=== PATIENT | male | born 1960 | race Caucasian/White ===

== ENCOUNTER 2017-08-30 09:38 | Inpatient (IN) | payer OTHER ==
--- NOTE | 2017-08-30 11:21 | ED Physician Documentation ---
PD HPI FOCAL NEURO - Stated complaint Stated Complaint: RT SIDE NUMBESS/VISION CHANGES - Chief complaint Chief Complaint: Neuro - History obtained from History obtained from: Patient - History of Present Illness Timing - onset: How many days ago (2) Timing - duration: Minutes Timing - details: Abrupt onset, Now resolved Severity of deficit: Mild Weakness: No: Face, Arm, Hand, Leg, Foot, Right, Left, Other Numbness: Hand, Right Associated symptoms: Headache Contributing factors: negative: Anticoagulated, Vascular dz, Atrial fibrillation Baseline status: positive: A&OX3, ambulatory, indep Similar symptoms before: Has not had sx before Recently seen: Not recently seen - Additional information Additional information: 57-year-old male with a history of hypertension has been noncompliant with his medications and 2 nights ago when he got home from work as he was putting some things up on a shelf he developed some numbness to his right fingertips a bit of a headache and some visual changes in the right peripheral vision. His symptoms resolved and have not recurred. He went to his doctor and was asked to come to the ED for evaluation. Review of Systems Constitutional: denies: Fever, Chills, Myalgias, Fatigue Eyes: reports: Decreased vision (resolved) Ears: denies: Ear pain Nose: denies: Rhinorrhea / runny nose, Congestion Throat: denies: Sore throat Cardiac: denies: Chest pain / pressure, Palpitations Respiratory: denies: Dyspnea, Cough GI: denies: Abdominal Pain, Nausea, Vomiting : denies: Dysuria, Frequency Skin: denies: Rash Musculoskeletal: denies: Neck pain, Back pain, Extremity pain Neurologic: reports: Numbness (resovled). denies: Generalized weakness, Focal weakness PD PAST MEDICAL HISTORY - Past Medical History Past Medical History: Yes GI: GERD - Past Surgical History Past Surgical History: Yes - Present Medications Home Medications: Ambulatory Orders Medication Instructions Recorded Confirmed HYDROcod/ACETAM 5/325 [Vicodin 1 - 2 ea PO Q6H PRN #30 tablet 04/19/14 5/325] - Allergies Allergies/Adverse Reactions: Allergies Allergy/AdvReac Type Severity Reaction Status Date / Time No Known Drug Allergies Allergy Verified 08/30/17 11:38 - Social History Does the pt smoke?: No Smoking Status: Never smoker Does the pt drink ETOH?: Yes Does the pt have substance abuse?: No - POLST Patient has POLST: No PD ED PE NORMAL - Vitals Vital signs reviewed: Yes (hypertension ) - General General: Alert and oriented X 3, No acute distress, Well developed/nourished - HEENT HEENT: Atraumatic, PERRL, EOMI - Neck Neck: Supple, no meningeal sign, No bony TTP - Cardiac Cardiac: RRR, Other (2/6 harsh holosystolic murmer at LSB) - Respiratory Respiratory: No respiratory distress, Clear bilaterally - Abdomen Abdomen: Soft, Non tender - Back Back: No CVA TTP, No spinal TTP - Derm Derm: Normal color, Warm and dry, No rash - Extremities Extremities: No deformity, No edema - Neuro Neuro: Alert and oriented X 3, pet nutrition specialist 2-12 intact, No motor deficit, No sensory deficit, Normal speech Eye Opening: Spontaneous Motor: Obeys Commands Verbal: Oriented GCS Score: 15 - Psych Psych: Normal mood, Normal affect NIHSS - Level of Consciousness Level of consciousness: (0) Alert, Keenly responsive LOC Questions: (0) Answers both Q's correct LOC Commands: (0) Performs both correctly - Gaze Best Gaze: (0) Normal - Visual Visual: (0) No loss - Facial Palsy Facial Palsy: (0) Normal, symmetrical movement - Motor Arms (both separate) Motor Arm (right): (0) No drift Motor Arm (left): (0) No drift - Motor Legs (both separate) Motor Leg (right): (0) No drift Motor Leg (left): (0) No drift - Limb Ataxia Limb Ataxia: (0) Absent - Sensory Sensory: (0) Normal - Best Language Best Language: (0) No aphasia - Dysarthria Dysarthria: (0) Normal - Extinction and Inattention (formally neg Extinction and inattention: (0) No abnormality - Total Score/Results Total Score/Result: 0 Results - Vitals Vitals: Vital Signs - 24 hr 08/30/17 08/30/17 08/30/17 09:55 12:10 15:45 Temperature 36.5 C Heart Rate 85 88 78 Respiratory 16 16 16 Rate Blood Pressure 207/114 H 190/117 H 181/117 H O2 Saturation 97 97 97 08/30/17 17:59 Temperature Heart Rate 86 Respiratory 18 Rate Blood Pressure 172/99 H O2 Saturation 95 Oxygen O2 Source Room air - EKG (time done) 1104 Rate: Rate (enter#) (82) Rhythm: NSR, LAE Intervals: LBBB (incomplete) QRS: LVH Compare to prior EKG: Old EKG unavailable Computer interpretation: Agree with computer - Labs Labs: Laboratory Tests 08/30/17 08/30/17 08/30/17 10:25 10:49 11:25 WBC 12.0 H RBC 5.32 Hgb 17.1 Hct 48.5 MCV 91.1 MCH 32.1 H MCHC 35.2 RDW 13.8 Plt Count 191 MPV 7.6 Neut # 9.2 H Lymph # 1.8 [place] # 0.9 Eos # 0.0 Baso # 0.1 Absolute Nucleated RBC 0.00 Nucleated RBC % 0.0 Sodium 134 L Potassium 3.4 L Chloride 97 L Carbon Dioxide 20 L Anion Gap 17.0 H BUN 7 Creatinine 0.7 Estimated GFR (MDRD) 116 Glucose 113 H Calcium 9.4 Total Bilirubin 3.5 H AST 31 ALT 32 Alkaline Phosphatase 71 Troponin I 0.04 Total Protein 7.8 Albumin 4.5 Globulin 3.3 Albumin/Globulin Ratio 1.4 Lipase 24 - Rads (name of study) CT head without Radiology: Prelim report reviewed (Impression: 1. No acute intracranial abnormality noted. 2. Encephalomalacia in the right cerebellum. Acute on chronic ischemia at the periphery of this encephalomalacia cannot be entirely excluded. If clinically indicated, this can be fully assessed with brain MRI with diffusion-weighted imaging.), EMP read indepedently, See rad report MRI brain Radiology: Prelim report reviewed (Impression: 1. Large subacute nonhemorrhagic right cerebellar ischemic infarct with mild mass-effect. Infarct age is indeterminate, probably a few days, less than 2 weeks. 2. Much smaller infarcts probably of similar age are also present in the left posterior cerebellar hemisphere.), EMP read indepedently, See rad report Procedures - IVC sono (time) 1120 Bedside IVC sono: IVC measures (cm) (1.41), IVC collapsed c insp (cm) (complete) , Dehydration (mild) PD MEDICAL DECISION MAKING - ED course Complexity details: reviewed old records, reviewed results, re-evaluated patient , considered differential, d/w patient ED course: 57-year-old physically fit male who has been noncompliant with his lisinopril has marked hypertension today and on his electrocardiogram he has evidence of left ventricular hypertrophy and he has known valvular heart disease. He does have mitral regurgitation. Here in the emergency department today he is symptom -free but has symptoms consistent with a transient ischemic attack 2 days ago. On interrogation of the inferior vena cava today he does have a completely collapsing IVC consistent with mild dehydration. On history from the patient at the time that he was doing this he was doing some overhead work with his arms. I suspect that this may have resulted in subclavian steal and resulting transient ischemic attack. Results of CT are concerning for large cerebellar infarct and MR confirms acute infarct, and the team at [facility] neuroscience is consulted and Dr. Gu graciously agrees to accept this young man in transfer for further work up and treatment. They do not have beds today and our hospitalist here is consulted for admission here. Departure - Departure Disposition: 66 [facility] DC/Xfer Clinical Impression: Cerebrovascular accident (CVA) Qualifiers: CVA mechanism: unspecified Qualified Code(s): I63.9 - Cerebral infarction, unspecified Hypertension Qualifiers: Hypertension type: unspecified Qualified Code(s): I10 - Essential (primary) hypertension
[2017-08-30] MEDS ORDERED: LISINOPRIL 5 MG TABLET PO STA (11:24)
--- NOTE | 2017-08-30 11:45 | CT Report ---
EXAM: CT HEAD EXAM DATE: 08/30/2017 11:39 AM. CLINICAL HISTORY: Right sided numbness resolved. COMPARISON: None. TECHNIQUE: Multiaxial CT images were obtained from the foramen magnum to the vertex. Reformats: Coron al. IV contrast: None. In accordance with CT protocol optimization, one or more of the following dose reduction techniques w ere utilized for this exam: automated exposure control, adjustment of mA and/or KV based on patient s ize, or use of iterative reconstructive technique. FINDINGS: Parenchyma: Encephalomalacia in the posterior aspect of the right cerebellum. Subcortical and periven tricular white matter changes consistent with small vessel ischemic disease in the appropriate clinic al setting. No acute intracranial abnormality noted. No mass effect or midline shift. No intracranial hemorrhage. Extraaxial Spaces: Normal for age. No subdural or epidural collections identified. Ventricles: Normal in size and position. Sinuses and Orbits: Imaged paranasal sinuses, orbits, and mastoids show no significant abnormality. Bones: No evidence of fracture or calvarial defect. Other: None. IMPRESSION: 1. No acute intracranial abnormality noted. 2. Encephalomalacia in the right cerebellum. Acute on chronic ischemia at the periphery of this encep halomalacia cannot be entirely excluded. If clinically indicated, this can be further assessed with b rain MRI with diffusion-weighted imaging. [facility] Referring Provider Line: [phone] SITE ID: [id number]
[2017-08-30 11:48] LABS: ALBUMIN 4.5 g/dL (3.2-5.5); ALBUMIN/GLOBULIN RATIO 1.4 (1.0-2.2); BILIRUBIN,TOTAL 3.5 mg/dL (0.2-1.0); CALCIUM 9.4 mg/dL (8.5-10.3); CREATININE 0.7 mg/dL (0.6-1.2); TOTAL PROTEIN 7.8 g/dL (6.7-8.2)
[2017-08-30 11:52] LABS: BASOPHILS # (AUTO) 0.1 10^3/uL (0.0-0.1); BASOPHILS % (AUTO) 0.6 %; EOSINOPHILS % (AUTO) 0.2 %; HGB - HEMOGLOBIN 17.1 g/dL (14.0-18.0); LYMPHOCYTES # (AUTO) 1.8 10^3/uL (1.5-3.5); LYMPHOCYTES % (AUTO) 14.9 %; MEAN CORPUSCULAR HEMOGLOBIN 32.1 pg (27.0-31.0); MEAN CORPUSCULAR HGB CONC 35.2 g/dL (32.0-36.0); MEAN CORPUSCULAR VOLUME 91.1 fL (80.0-94.0); MEAN PLATELET VOLUME 7.6 fL (7.4-11.4); MONOCYTES # (AUTO) 0.9 10^3/uL (0.0-1.0); MONOCYTES % (AUTO) 7.4 %; NEUTROPHILS # (AUTO) 9.2 10^3/uL (1.5-6.6); NEUTROPHILS % (AUTO) 76.9 %; PLT - PLATELET COUNT 191 10^3/uL (130-450); RED BLOOD COUNT 5.32 10^6/uL (4.70-6.10); RED CELL DISTRIBUTION WIDTH 13.8 % (12.0-15.0)
--- NOTE | 2017-08-30 14:12 | MRI Preliminary Report ---
Exam: MRI BRAIN W/O IMPRESSION: 1. Large subacute nonhemorrhagic right cerebellar ischemic infarct with mild mass effect. Infarct ag e is indeterminant, probably a few days, less than 2 weeks. 2. Much smaller infarcts probably of similar age are also present in the left posterior cerebral linh sphere. [facility] SITE ID: [id number]
--- NOTE | 2017-08-30 14:23 | MRI Report ---
EXAM: MRI BRAIN WITHOUT CONTRAST EXAM DATE: 08/30/2017 01:49 PM. CLINICAL HISTORY: TIA symptoms. Follow-up findings suggestive of cerebellar infarct. Right side numbn ess. COMPARISON: None. TECHNIQUE: Multiplanar, multisequence T1-weighted and fluid-sensitive MR sequences of the brain were performed. Sequences optimized for routine evaluation. Other: None. IV Contrast: None. FINDINGS: Large confluent nonhemorrhagic subacute ischemic infarct of the right inferior and medial cerebellar hemisphere. The region of restricted diffusion with swelling and edema measures up to 5.4 x 3.9 x 2.8 cm. There is mild effacement and mass effect of the inferior lateral posterior fourth ventricle with out evidence for obstruction. Additional smaller supratentorial nodular foci of restricted diffusion including in the region of the left parieto-occipital sulcus measuring about 1.6 cm and additional patchy and nodular diffusion abn ormality in the left posterior periatrial white matter and adjacent cortex. This measures about 1.2 c m. No supratentorial hemorrhage. Minimal chronic-appearing white matter T2 hyperintense signal changes likely from aging and chronic m icroangiopathy. The major arterial skull base flow voids are present. No acute-appearing sinus or mastoid disease. No focal pathologic-appearing marrow signal changes in the skull or clivus. IMPRESSION: 1. Large subacute nonhemorrhagic right cerebellar ischemic infarct with mild mass effect. 2. Much smaller infarcts probably of similar age are also present in the left posterior cerebral linh sphere. [facility] Referring Provider Line: [phone] SITE ID: [id number]
[2017-08-30] MEDS ORDERED: ASPIRIN CHEW 81 MG TABLET PO STA (14:33)
[2017-08-30] MEDS ORDERED: SODIUM CHLORIDE FLUSH 0.9% 10 ML SYRINGE IVP PRN ×2 (20:47→21:11)
[2017-08-30] MEDS ORDERED: TEMAZEPAM 15 MG CAPSULE PO PRN ×2 (20:57→21:11)
[2017-08-30] MEDS ORDERED: oxyCODONE 5 MG TABLET PO PRN ×2 (20:57→21:11)
[2017-08-30] MEDS ORDERED: PROCHLORPERAZINE 10 MG/2 ML VIAL IVP PRN ×2 (20:57→21:11)
[2017-08-30] MEDS ORDERED: ATORVASTATIN 40 MG TABLET PO SCH ×2 (21:00→22:00)
--- NOTE | 2017-08-30 21:20 | HISTORY & PHYSICAL EXAMINATION ---
Chief Complaint - Chief Complaint Chief Complaint: R hemianopsia, numbness in fingers, headache History of Present Illness - Admitted From Admitted From:: Home - History Obtained From History obtained from: Patient and - History of Present Illness HPI Comment/Other: Mr. Brandon Chowdary is a pleasant 57-year-old male with a history of a neurologic event Monday which was self resolving which included right-sided hemianopsia, numbness to his fingers, and a dull aching headache which persisted for several hours. The hemianopsia and numbness in his fingers were only present for approximately 10-15 minutes. Because this event concerned him he came into the emergency department for further evaluation today and was found on MRI to have suffered a subacute cerebellar infarction. History - Past Medical History Cardiovascular: reports: Hypertension GI: reports: Other (achalasia) - Past Surgical History General: reports: Other (lower esophogus repair (achalasia) and repair of subsequent abdominal hernia) - POLST Patient has POLST: No Meds/Allgy - Home Medications Home Medications: Ambulatory Orders Medication Instructions Recorded Confirmed Lisinopril 10 mg PO DAILY 08/30/17 08/30/17 Omeprazole [PriLOSEC] 10 mg PO QDAC 08/30/17 08/30/17 - Allergies Allergies/Adverse Reactions: Allergies Allergy/AdvReac Type Severity Reaction Status Date / Time No Known Drug Allergies Allergy Verified 08/30/17 11:38 Review of Systems - Constitutional Constitutional: denies: Fatigue, Fever, Chills, Malaise - Eyes Eyes: reports: Other (Patient had self resolving right-sided hemianopsia Monday). denies: Pain, Irritation, Blurred vision - Ears, Nose & Throat Ears, Nose & Throat: denies: Ear pain, Hearing loss, Tinnitus, Vertigo, Nasal discharge - Cardiovascular Cariovascular: denies: Irregular heart rate, Palpitations, Chest pain, Edema - Respiratory Respiratory: denies: Cough, Sputum production, Wheezing, Hemoptysis, Orthopnea, SOB at rest - Gastrointestinal Gastrointestinal: denies: Abdominal pain, Constipation, Diarrhea, Rectal bleeding - Genitourinary Genitourinary: denies: Dysuria, Frequency, Urgency, Hematuria - Musculoskeletal Musculoskeletal: denies: Muscle pain, Back pain, Muscle aches, Stiffness - Integumentary Integumentary: denies: Rash, Pruritis, Lesions, Dryness - Neurological Neurological: denies: General weakness, Headache, Dizziness, Numbness - Psychiatric Psychiatric: denies: Depression, Anxiety, Suicidal, Hallucinations - Endocrine Endocrine: denies: Polyuria, Polydypsia, Polyphagia - Hematologic/Lymphatic Hematologic/Lymphatic: denies: Anemia, Bruising, Petechiae, Lymphadenopathy - All Other Systems All Other Systems: reports: Reviewed and negative Exam - Vital Signs Reviewed Vital Signs: Yes Vital Signs: Vital Signs x48h Pulse Resp BP Pulse Ox 08/30/17 19:59 76 20 167/106 H 95 08/30/17 17:59 86 18 172/99 H 95 08/30/17 15:45 78 16 181/117 H 97 - Physical Exam General Appearance: positive: No acute distress, Alert Eyes Bilateral: positive: Normal inspection, PERRL, EOMI, No lid inflammation ENT: positive: ENT inspection nml, Pharynx nml, No signs of dehydration Neck: positive: Nml inspection, Thyroid nml, No JVD, Trachea midline. negative : Thyromegaly Respiratory: positive: Chest non-tender, No respiratory distress, Breath sounds nml. negative: Wheezes, Rales, Rhonchi Cardiovascular: positive: Regular rate & rhythm, No murmur, No gallop Peripheral Pulses: positive: 1+ Abdomen: positive: Non-tender, No organomegaly, Nml bowel sounds, No distention. negative: Tenderness Back: positive: Nml inspection. negative: CVA tenderness (R), CVA tenderness (L ) Skin: positive: Color nml, No rash, Warm, Dry. negative: Cyanosis Extremities: positive: Non-tender, Full ROM, Nml appearance, No pedal edema Neurologic/Psychiatric: positive: Oriented x3, CN's nml (2-12), Motor nml, Sensation nml, Mood/affect nml Conclusion/Plan - Problem List (1) Cerebrovascular accident (CVA) Conclusion/Plan: The patient has sustained a large right cerebellar infarction with a small amount of mass effect noted on MRI. He will be transferred to [facility] when a bed is available and in the meantime will be brought into the hospital in an ICU bed. We will start him on Lovenox and aspirin and will address any other issues that might occur until he can be transferred to [facility]. Qualifiers: CVA mechanism: other Qualified Code(s): I63.8 - Other cerebral infarction (2) Hypertension Conclusion/Plan: Due to the patient's cerebellar infarction, we will set goals of maintaining the systolic blood pressure less than 220 mmHg or diastolic blood pressure at less than 120 mmHg. Qualifiers: Hypertension type: unspecified Qualified Code(s): I10 - Essential (primary ) hypertension (3) Achalasia of esophagus Conclusion/Plan: No need for intervention at this time. - Lab Results Lab results reviewed: Yes Fish Bones: 08/30/17 10:49 08/30/17 11:25 - Diagnostic Imaging Results Diagnostic Imaging Results: positive: Final report reviewed Diagnostic Imaging Results Comments: EXAM: MRI BRAIN WITHOUT CONTRAST EXAM DATE: 08/30/2017 01:49 PM. CLINICAL HISTORY: TIA symptoms. Follow-up findings suggestive of cerebellar infarct. Right side numbness. COMPARISON: None. TECHNIQUE: Multiplanar, multisequence T1-weighted and fluid-sensitive MR sequences of the brain were performed. Sequences optimized for routine evaluation. Other: None. IV Contrast: None. FINDINGS: Large confluent nonhemorrhagic subacute ischemic infarct of the right inferior and medial cerebellar hemisphere. The region of restricted diffusion with swelling and edema measures up to 5.4 x 3.9 x 2.8 cm. There is mild effacement and mass effect of the inferior lateral posterior fourth ventricle without evidence for obstruction. Additional smaller supratentorial nodular foci of restricted diffusion including in the region of the left parieto-occipital sulcus measuring about 1.6 cm and additional patchy and nodular diffusion abnormality in the left posterior periatrial white matter and adjacent cortex. This measures about 1.2 cm. No supratentorial hemorrhage. Minimal chronic-appearing white matter T2 hyperintense signal changes likely from aging and chronic microangiopathy. The major arterial skull base flow voids are present. No acute-appearing sinus or mastoid disease. No focal pathologic-appearing marrow signal changes in the skull or clivus. IMPRESSION: 1. Large subacute nonhemorrhagic right cerebellar ischemic infarct with mild mass effect. 2. Much smaller infarcts probably of similar age are also present in the left posterior cerebral hemisphere. EXAM: CT HEAD EXAM DATE: 08/30/2017 11:39 AM. CLINICAL HISTORY: Right sided numbness resolved. COMPARISON: None. TECHNIQUE: Multiaxial CT images were obtained from the foramen magnum to the vertex. Reformats: Coronal. IV contrast: None. In accordance with CT protocol optimization, one or more of the following dose reduction techniques were utilized for this exam: automated exposure control, adjustment of mA and/or KV based on patient size, or use of iterative reconstructive technique. FINDINGS: Parenchyma: Encephalomalacia in the posterior aspect of the right cerebellum. Subcortical and periventricular white matter changes consistent with small vessel ischemic disease in the appropriate clinical setting. No acute intracranial abnormality noted. No mass effect or midline shift. No intracranial hemorrhage. Extraaxial Spaces: Normal for age. No subdural or epidural collections identified. Ventricles: Normal in size and position. Sinuses and Orbits: Imaged paranasal sinuses, orbits, and mastoids show no significant abnormality. Bones: No evidence of fracture or calvarial defect. Other: None. IMPRESSION: 1. No acute intracranial abnormality noted. 2. Encephalomalacia in the right cerebellum. Acute on chronic ischemia at the periphery of this encephalomalacia cannot be entirely excluded. If clinically indicated, this can be further assessed with brain MRI with diffusion-weighted imaging. - EKG Results EKG Interpreted Independently: Yes EKG Comparison: Old EKG unavailable Core Measures - Anticipated LOS I expect patient to be DC'd or transferred within 96 hours.: Yes - DVT/VTE - Prophylaxis VTE/DVT Device ordered at admit?: No VTE/DVT Prophylaxis med ordered at admit?: Yes - Stroke - Rehab Assessment Rehab services assessment to be ordered?: No Not Ordered - Medical Reason: Not indicated
[2017-08-30 21:28] LABS: ALBUMIN 4.7 g/dL (3.2-5.5); ALBUMIN/GLOBULIN RATIO 1.4 (1.0-2.2); BILIRUBIN,TOTAL 2.9 mg/dL (0.2-1.0); CALCIUM 9.6 mg/dL (8.5-10.3); CREATININE 0.8 mg/dL (0.6-1.2)
[2017-08-30 21:29] LABS: BASOPHILS # (AUTO) 0.1 10^3/uL (0.0-0.1); BASOPHILS % (AUTO) 0.6 %; EOSINOPHILS % (AUTO) 0.2 %; HGB - HEMOGLOBIN 17.4 g/dL (14.0-18.0); LYMPHOCYTES # (AUTO) 1.6 10^3/uL (1.5-3.5); MEAN CORPUSCULAR HEMOGLOBIN 32.4 pg (27.0-31.0); MEAN CORPUSCULAR HGB CONC 34.6 g/dL (32.0-36.0); MEAN CORPUSCULAR VOLUME 93.8 fL (80.0-94.0); MEAN PLATELET VOLUME 7.8 fL (7.4-11.4); MONOCYTES # (AUTO) 0.8 10^3/uL (0.0-1.0); MONOCYTES % (AUTO) 7.4 %; NEUTROPHILS # (AUTO) 8.1 10^3/uL (1.5-6.6); NEUTROPHILS % (AUTO) 76.8 %; PLT - PLATELET COUNT 190 10^3/uL (130-450); RED BLOOD COUNT 5.36 10^6/uL (4.70-6.10); RED CELL DISTRIBUTION WIDTH 13.7 % (12.0-15.0); WHITE BLOOD COUNT 10.6 x10^3/uL (4.8-10.8)
[2017-08-30 21:35] LABS: PT - PROTHROMBIN TIME 11.4 secs (9.9-12.6)
[2017-08-30] MEDS ORDERED: SODIUM CHLORIDE FLUSH 0.9% 10 ML SYRINGE IVP SCH (22:00)
[2017-08-30] MEDS: SODIUM CHLORIDE FLUSH 0.9% 10 ML SYRINGE IVP SCH (22:24)
[2017-08-31] MEDS ORDERED: PANTOPRAZOLE 40 MG TABLET PO SCH ×2 (07:00)
[2017-08-31] MEDS: SODIUM CHLORIDE FLUSH 0.9% 10 ML SYRINGE IVP SCH (08:04)
[2017-08-31] MEDS ORDERED: ASPIRIN EC 81 MG TABLET PO SCH ×3 (09:00)
[2017-08-31] MEDS ORDERED: LISINOPRIL 5 MG TABLET PO SCH ×2 (09:00)
[2017-08-31] MEDS ORDERED: ENOXAPARIN 40 MG/0.4 ML SYRINGE SUBQ SCH ×4 (09:00)
[2017-08-31] MEDS ORDERED: POLYETHYLENE GLYCOL 3350 17 GM PACKET PO SCH ×2 (09:00)
[2017-08-31] MEDS ORDERED: POTASSIUM CHLORIDE 20 MEQ TABLET PO SCH (09:00)
[2017-08-31] MEDS ORDERED: POTASSIUM CHLOR 10 MEQ/100 ML 10 MEQ/100 ML BAG IV SCH (09:00)
[2017-08-31 13:17] VITALS: BP 172/110
--- NOTE | 2017-08-31 13:25 | Discharge Plan ---
Discharge Plan Disposition: 02 Transfer Acute Care Hosp Condition: Fair Diet: Low Sodium No Smoking: If you smoke, Please STOP! Call for help. Follow-up with: Veronica Santizo DO [Primary Care Provider] -
--- NOTE | 2017-09-17 10:02 | DISCHARGE SUMMARY ---
Physician: Carito Linares MD DATE OF ADMISSION: 08/30/2017 DATE OF DISCHARGE/TRANSFER: 08/31/2017 This is a 57-year-old black male with a history of hypertension, history of a heart murmur, and achalasia for which he had surgery and also surgery for a hiatal hernia. The patient admitted to noncompliance with his blood pressure medications. The patient presented to the emergency room 48 hours after symptoms of having right-sided peripheral vision abnormality and numbness to his right fingertips and a headache. He did go to his own doctor and was told to come to the emergency room. All of his symptoms had resolved and he reported that they lasted about 15 minutes. In the emergency room, he was found to have a blood pressure of 207/ [address] showed encephalomalacia in the right cerebellum, and acute on chronic ischemia in the periphery of this encephalomalacia could not be excluded. The patient was admitted to our ICU awaiting transfer to the neurologic service at [facility], where he was accepted. HOSPITAL COURSE AND DISCHARGE DIAGNOSES 1. Subacute cerebrovascular accident due to ischemia/occlusion of the right cerebellar artery. The patient underwent brain MRI for more detailed imaging and this showed: large subacute nonhemorrhagic right cerebellar ischemic infarct with a mild mass effect, and much smaller infarcts probably of similar age present in the left posterior cerebral hemisphere. The patient had no signs or symptoms of mass effect or brain herniation. He was transferred the following morning after admission to [facility] under Neurologic care. The patient was started on aspirin and Lovenox while here and was kept on his lisinopril. Permissive hypertension was allowed, and he was running a blood pressure of 145- 170/90. 2. Hypertension, poorly controlled. The patient did admit he was noncompliant with his blood pressure medications. His scheduled lisinopril 10 mg daily was continued. As above, permissive hypertension was allowed because of the subacute stroke. 3. Abnormal EKG. The patient's resting EKG showed sinus rhythm, PVCs, incomplete left bundle branch block and voltage criteria for left ventricular hypertrophy. 4. Heart murmur. The patient reported having a heart murmur known for several years, but cannot remember ever having an Echo. An Echo was done here, which showed moderate concentric left ventricular hypertrophy, left ventricular ejection fraction 60% to 65%, and myxomatous changes of the mitral valve with moderate mitral valve prolapse and moderate eccentric mitral regurgitation, anteriorly directed, also mild tricuspid regurgitation with a normal calculated PA pressure of 28 mmHg. 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 The LVH and aortic dilation may be a result of long-standing uncontrolled hypertension. LABORATORY AND IMAGING: Reviewed and summarized above. ALLERGIES: NONE. MEDICATIONS AT THE TIME OF TRANSFER 1. Aspirin. 2. Lovenox. 3. Lisinopril. 4. Omeprazole. CONDITION AT THE TIME OF TRANSFER: Guarded PHYSICAL EXAM AT THE TIME OF TRANSFER: BP 149/90 HR 60 Afebrile HEENT: unremarkable Neck: no JVD or bruits Chest: clear Heart: normal S1 and S2, 2-3/6 systolic murmur at lower left sternal border and apex Abdomen: soft, no audible bruit Extremities: good pulses, no edema Neuro: intact CODE STATUS: FULL CODE. FOLLOWUP: To be determined after his hospitalization at [facility]. TIME REQUIRED TO COMPLETE THIS ENTIRE DISCHARGE: 50 minutes. TD: 09/17/2017 09:52 ACE
== END 2017-08-31 13:30 | disposition short-term general hospital (02) | DRG 66 ==
LOC: ED 09:38 → ICU 20:47 → ED 21:07
PROVIDERS: ADMIT Hospitalist; ATTEND Internal Medicine
DX: I63.8 Other cerebral infarction (principal); H53.47 Heteronymous bilateral field defects; R20.9 Unspecified disturbances of skin sensation; R40.2412 Glasgow coma scale score 13-15, at arrival to emergency department; R29.700 NIHSS score 0; I11.9 Hypertensive heart disease without heart failure; G93.89 Other specified disorders of brain; T46.4X6A Underdosing of angiotensin-converting-enzyme inhibitors, initial encounter; Z91.138 Patient's unintentional underdosing of medication regimen for other reason; Z79.899 Other long term (current) drug therapy
CPT/HCPCS: 36415; 70450; 70551; 80053; 83690; 84484; 85025; 85610; 85730; 87150; 93005; 93308; 96365; 96372; 99284; 99285

== ENCOUNTER 2017-08-31 13:39 | Outpatient (CLI) | payer OTHER | END 2017-08-31 13:40 | disposition short-term general hospital (02) | LOC: EMS 13:39 | PROVIDERS: ATTEND Surgery | DX: I63.9 Cerebral infarction, unspecified (principal) | CPT/HCPCS: A0425; A0428 ==

== ENCOUNTER 2017-09-28 08:00 | Outpatient (CLI) | payer OTHER ==
[2017-09-28 19:26] LABS: ALBUMIN 5.2 g/dL (3.2-5.5); ALBUMIN/GLOBULIN RATIO 1.8 (1.0-2.2); CALCIUM 9.6 mg/dL (8.5-10.3); CREATININE 0.9 mg/dL (0.6-1.2); TOTAL PROTEIN 8.1 g/dL (6.7-8.2)
== END 2017-09-28 08:01 | disposition home or self-care (01) ==
LOC: LAB.WCP 08:00
PROVIDERS: ATTEND Family Medicine
DX: I10 Essential (primary) hypertension (principal)
CPT/HCPCS: 36415; 80053; 82088; 82533; 84244

== ENCOUNTER 2017-10-23 08:00 | Outpatient (CLI) | payer OTHER ==
[2017-10-23 20:51] LABS: ALBUMIN 4.8 g/dL (3.2-5.5); ALBUMIN/GLOBULIN RATIO 1.9 (1.0-2.2); BILIRUBIN,TOTAL 1.3 mg/dL (0.2-1.0); CALCIUM 9.1 mg/dL (8.5-10.3); CREATININE 0.7 mg/dL (0.6-1.2); TOTAL PROTEIN 7.3 g/dL (6.7-8.2)
== END 2017-10-23 08:01 ==
LOC: LAB.WCP 08:00
PROVIDERS: ATTEND Family Medicine
DX: R94.5 Abnormal results of liver function studies (principal)
CPT/HCPCS: 36415; 80053

== ENCOUNTER 2017-10-24 08:27 | Emergency (ER) | payer OTHER ==
[2017-10-24 08:47] VITALS: BP 143/82
[2017-10-24 08:59] LABS: BASOPHILS # (AUTO) 0.1 10^3/uL (0.0-0.1); BASOPHILS % (AUTO) 0.9 %; EOSINOPHILS # (AUTO) 0.2 10^3/uL (0.0-0.7); EOSINOPHILS % (AUTO) 1.9 %; HGB - HEMOGLOBIN 15.3 g/dL (14.0-18.0); LYMPHOCYTES % (AUTO) 23.1 %; MEAN CORPUSCULAR HEMOGLOBIN 31.3 pg (27.0-31.0); MEAN CORPUSCULAR HGB CONC 35.6 g/dL (32.0-36.0); MEAN PLATELET VOLUME 6.8 fL (7.4-11.4); MONOCYTES # (AUTO) 0.9 10^3/uL (0.0-1.0); MONOCYTES % (AUTO) 10.8 %; NEUTROPHILS # (AUTO) 5.5 10^3/uL (1.5-6.6); NEUTROPHILS % (AUTO) 63.3 %; PLT - PLATELET COUNT 230 10^3/uL (130-450); RED BLOOD COUNT 4.89 10^6/uL (4.70-6.10); RED CELL DISTRIBUTION WIDTH 12.3 % (12.0-15.0); WHITE BLOOD COUNT 8.7 x10^3/uL (4.8-10.8)
[2017-10-24 09:08] LABS: CALCIUM 9.4 mg/dL (8.5-10.3); CREATININE 0.9 mg/dL (0.6-1.2)
--- NOTE | 2017-10-24 09:15 | ED Physician Documentation ---
History of Present Illness - Stated complaint Stated Complaint: SODIUM LEVEL CHECK PER DR MERCER - Chief complaint Chief Complaint: General - Additonal information Additional information: hx from pt 57 male healthy on two diuretic (chlorthalidone and spironolcatone) among other meds had a routine doc visit and routine labs yesterda and his Na came back low at 118 he feels fine - has no sx PMD sent him to the ER for eval Review of Systems Constitutional: denies: Fever, Chills Throat: denies: Sore throat Cardiac: denies: Chest pain / pressure Respiratory: denies: Dyspnea GI: denies: Abdominal Pain, Nausea, Vomiting Endocrine: denies: Easy bruising / bleeding Immunocompromised: denies: Immunocompromised PD PAST MEDICAL HISTORY - Past Medical History Past Medical History: Yes Cardiovascular: Hypertension Respiratory: None Neuro: None, CVA Endocrine/Autoimmune: None GI: Other HEENT: None Derm: None - Past Surgical History Past Surgical History: Yes General: Other - Present Medications Home Medications: Ambulatory Orders Medication Instructions Recorded Confirmed Lisinopril 10 mg PO DAILY 08/30/17 10/24/17 Omeprazole [PriLOSEC] 10 mg PO QDAC 08/30/17 10/24/17 Atorvastatin [Lipitor] 10/24/17 Metoprolol Succinate 10/24/17 Spironolactone 10/24/17 amLODIPine [Norvasc] 10 mg PO DAILY 10/24/17 10/24/17 - Allergies Allergies/Adverse Reactions: Allergies Allergy/AdvReac Type Severity Reaction Status Date / Time No Known Drug Allergies Allergy Verified 08/30/17 11:38 - Social History Does the pt smoke?: No Smoking Status: Never smoker Does the pt drink ETOH?: Yes Does the pt have substance abuse?: No - POLST Patient has POLST: No PD ED PE NORMAL - Vitals Vital signs reviewed: Yes - Neck Neck: Supple, no meningeal sign - Cardiac Cardiac: RRR - Respiratory Respiratory: No respiratory distress - Abdomen Abdomen: Soft, Non tender - Neuro Neuro: Alert and oriented X 3 Results - Vitals Vitals: Vital Signs - 24 hr 10/24/17 08:37 Temperature 36.2 C L Heart Rate 66 Respiratory 16 Rate Blood Pressure 143/82 H O2 Saturation 100 Oxygen O2 Source Room air - EKG (time done) 0844 Rate: Rate (enter#) (66) Rhythm: NSR [place]: Normal Intervals: Other (partial LBBB/IVCD) - Labs Labs: Laboratory Tests 10/24/17 10/24/17 08:56 08:56 WBC 8.7 RBC 4.89 Hgb 15.3 Hct 43.0 MCV 88.0 MCH 31.3 H MCHC 35.6 RDW 12.3 Plt Count 230 MPV 6.8 L Neut # 5.5 Lymph # 2.0 Luna # 0.9 Eos # 0.2 Baso # 0.1 Absolute Nucleated RBC 0.00 Nucleated RBC % 0.0 Sodium 122 L Potassium 4.1 Chloride 86 L Carbon Dioxide 23 Anion Gap 13.0 BUN 14 Creatinine 0.9 Estimated GFR (MDRD) 87 L Glucose 110 H Calcium 9.4 PD MEDICAL DECISION MAKING - ED course ED course: Na was 131 09/28/17, 118 10/23/17 and now 122 exact time of onset unclear - not sure if truly acute < 48 hr but not chronic either, moderate severity now with level 122, improved from yesterday, asymptomatic alread barbara 4 mEQ/L in 12 hr s intervention and would not wish to correct more rapidly than that anyway so feel pt safe for dc, PMD already stopped the chlorthalidone, recheck level again with PMD in another 24-48 hr, return for sx such as VIDAL sleepiness, diff walking, NV, confusion Departure - Departure Disposition: 01 Home, Self Care Clinical Impression: Hyponatremia Condition: Good Instructions: ED Hyponatremia Comments: Your sodium level is already back up to 122 and you have no symptoms So I do not think you need to be admitted to the hospital for emergent treatment. Stop the chlorthalidone as instructed by Dr eMrcer Please have your level checked again in another 48 hr Return to the ER if you develop symptoms of low sodium such as headache, unsteady balance or gait, nausea vomiting, confusion, sleepiness.
== END 2017-10-24 09:41 | disposition home or self-care (01) ==
LOC: ED 08:27
DX: E87.1 Hypo-osmolality and hyponatremia (principal); I44.7 Left bundle-branch block, unspecified; R94.31 Abnormal electrocardiogram [ECG] [EKG]; I10 Essential (primary) hypertension; Z86.73 Personal history of transient ischemic attack (TIA), and cerebral infarction without residual deficits
CPT/HCPCS: 36415; 80048; 85025; 93005; 99282; 99283

== ENCOUNTER 2017-12-29 11:19 | Outpatient (CLI) | payer OTHER | END 2017-12-29 11:20 | disposition home or self-care (01) | LOC: DI 11:19 | PROVIDERS: ATTEND Family Medicine | DX: I48.91 Unspecified atrial fibrillation (principal); I51.7 Cardiomegaly; I34.0 Nonrheumatic mitral (valve) insufficiency; I34.1 Nonrheumatic mitral (valve) prolapse | CPT/HCPCS: 93306 ==

== ENCOUNTER 2018-05-09 07:48 | Outpatient (CLI) | payer OTHER ==
[2018-05-09 12:52] LABS: BASOPHILS # (AUTO) 0.1 10^3/uL (0.0-0.1); BASOPHILS % (AUTO) 1.1 %; EOSINOPHILS # (AUTO) 0.3 10^3/uL (0.0-0.7); EOSINOPHILS % (AUTO) 3.8 %; HGB - HEMOGLOBIN 13.4 g/dL (14.0-18.0); LYMPHOCYTES % (AUTO) 28.3 %; MEAN CORPUSCULAR HEMOGLOBIN 32.6 pg (27.0-31.0); MEAN CORPUSCULAR HGB CONC 33.4 g/dL (32.0-36.0); MEAN CORPUSCULAR VOLUME 97.8 fL (80.0-94.0); MEAN PLATELET VOLUME 9.4 fL (7.4-11.4); MONOCYTES % (AUTO) 13.5 %; NEUTROPHILS # (AUTO) 3.8 10^3/uL (1.5-6.6); NEUTROPHILS % (AUTO) 53.3 %; PLT - PLATELET COUNT 188 10^3/uL (130-450); RED BLOOD COUNT 4.09 10^6/uL (4.70-6.10); RED CELL DISTRIBUTION WIDTH 15.1 % (12.0-15.0); WHITE BLOOD COUNT 7.2 x10^3/uL (4.8-10.8)
[2018-05-09 13:15] LABS: ALBUMIN 4.3 g/dL (3.2-5.5); ALBUMIN/GLOBULIN RATIO 1.8 (1.0-2.2); ALKALINE PHOSPHATASE 67 IU/L (42-121); ALT ALANINE AMINOTRANSFERASE 74 IU/L (10-60); AST ASPARTATE AMINOTRANSFERASE 45 IU/L (10-42); BILIRUBIN,TOTAL 2.6 mg/dL (0.2-1.0); BUN - BLOOD UREA NITROGEN 8 mg/dL (6-20); CALCIUM 9.2 mg/dL (8.5-10.3); CARBON DIOXIDE - CO2 26 mmol/L (21-32); CHLORIDE 103 mmol/L (101-111); CHOLESTEROL 114 mg/dL; GAMMA GLUTAMYL TRANSPEPTIDASE 149 IU/L (8-55); GFR - MDRD 76 (>89); GLUCOSE 95 mg/dL (70-100); HDL CHOLESTEROL 38 mg/dL; LDL CHOLESTEROL,CALCULATED 61 mg/dL; LDL/HDL RATIO 1.6 (<3.6); SODIUM 138 mmol/L (135-145); TOTAL PROTEIN 6.7 g/dL (6.7-8.2); VLDL CHOLESTEROL 15 mg/dL
[2018-05-10 10:56] LABS: HEPATITIS A AB TOTAL(IMMUNITY) NON-REACTIVE (NON-REACTIVE); HEPATITIS B CORE AB TOTAL NON-REACTIVE (NON-REACTIVE)
[2018-05-10 10:57] LABS: HEPATITIS C ANTIBODY NON-REACTIVE (NON-REACTIVE)
[2018-05-10 10:58] LABS: HEPATITIS B SURFACE ANTIGEN NON-REACTIVE (NON-REACTIVE)
== END 2018-05-09 07:49 | disposition home or self-care (01) ==
LOC: LAB.WCP 07:48
PROVIDERS: ATTEND Family Medicine
DX: R94.5 Abnormal results of liver function studies (principal); I63.9 Cerebral infarction, unspecified; I10 Essential (primary) hypertension
CPT/HCPCS: 36415; 80053; 80061; 82977; 83721; 85025; 86317; 86704; 86708; 86803; 87340

== ENCOUNTER 2018-05-17 15:34 | Outpatient (CLI) | payer OTHER ==
--- NOTE | 2018-05-18 00:01 | Ultrasound Report ---
Reason: LIVER FUNCTION TESTS,ABNORMAL,ALCOHOL USE Procedure Date: 05/17/2018 Accession Number: [id number] / [id number] Procedure: US - Abdomen Complete CPT Code: FULL RESULT: EXAM: ABDOMEN ULTRASOUND EXAM DATE: 05/17/2018 04:21 PM. CLINICAL HISTORY: LIVER FUNCTION TESTS,ABNORMAL,ALCOHOL USE. COMPARISON: None. TECHNIQUE: Real-time scanning was performed with static images obtained. FINDINGS: Liver: Normal in size and echotexture. 16 cm. Main portal vein flow: Hepatopetal. Gallbladder: Normal. No stones, wall thickening, or sonographic Fitzpatrick's sign. Biliary System: Common bile duct measures 4.1 mm. No intrahepatic or extrahepatic ductal dilatation. Pancreas: Distal pancreas not well-seen. Limitations secondary to bowel gas. Remaining pancreas unremarkable. Kidneys: Right: 11.8 cm longitudinally. Normal. No contour-deforming mass, stones, or hydronephrosis. Left: 10.9 cm longitudinally. Normal. No contour-deforming mass, stones, or hydronephrosis. Spleen: 8.9 x 5.2 x 4.4 cm. Normal in size and echotexture. Aorta and Inferior Vena Cava: Unremarkable. Other: None. IMPRESSION: Normal abdomen ultrasound. RADIA
== END 2018-05-17 15:35 | disposition home or self-care (01) ==
LOC: DI 15:34
PROVIDERS: ATTEND Family Medicine
DX: R94.5 Abnormal results of liver function studies (principal); F10.99 Alcohol use, unspecified with unspecified alcohol-induced disorder
CPT/HCPCS: 76700

== ENCOUNTER 2018-05-30 07:39 | Outpatient (CLI) | payer OTHER ==
[2018-05-30 14:38] LABS: ALBUMIN 4.3 g/dL (3.2-5.5); ALBUMIN/GLOBULIN RATIO 1.9 (1.0-2.2); BILIRUBIN,TOTAL 2.4 mg/dL (0.2-1.0); CREATININE 0.8 mg/dL (0.6-1.2); TOTAL PROTEIN 6.6 g/dL (6.7-8.2)
== END 2018-05-30 07:40 | disposition home or self-care (01) ==
LOC: LAB.WCP 07:39
PROVIDERS: ATTEND Family Medicine
DX: R94.5 Abnormal results of liver function studies (principal)
CPT/HCPCS: 36415; 80053; 82977

== ENCOUNTER 2018-07-30 08:08 | Outpatient (CLI) | payer OTHER ==
[2018-07-30 16:01] LABS: INR 1.4 (0.8-1.2); PT - PROTHROMBIN TIME 15.6 secs (9.9-12.6)
== END 2018-07-30 23:59 | disposition home or self-care (01) ==
LOC: LAB.WCP 08:08
DX: Z98.890 Other specified postprocedural states (principal); Z86.79 Personal history of other diseases of the circulatory system
CPT/HCPCS: 36415; 85610

== ENCOUNTER 2018-08-09 11:33 | Outpatient (CLI) | payer OTHER ==
[2018-08-09 19:48] LABS: INR 1.8 (0.8-1.2); PT - PROTHROMBIN TIME 20.6 secs (9.9-12.6)
== END 2018-08-09 23:59 | disposition home or self-care (01) ==
LOC: LAB.WCP 11:33
PROVIDERS: ATTEND Physician Assistant Surgical
DX: Z98.890 Other specified postprocedural states (principal)
CPT/HCPCS: 36415; 85610

== ENCOUNTER 2018-08-16 10:35 | Outpatient (CLI) | payer OTHER | END 2018-08-16 10:36 | disposition home or self-care (01) | LOC: LAB 10:35 | PROVIDERS: ATTEND Thoracic Surgery (Cardiothoracic Vascular Surgery) | DX: Z79.890 Hormone replacement therapy (principal); Z86.79 Personal history of other diseases of the circulatory system | CPT/HCPCS: 85610 ==

== ENCOUNTER 2018-08-24 11:05 | Outpatient (CLI) | payer OTHER | END 2018-08-24 11:06 | disposition home or self-care (01) | LOC: LAB 11:05 | PROVIDERS: ATTEND Thoracic Surgery (Cardiothoracic Vascular Surgery) | DX: Z98.890 Other specified postprocedural states (principal); Z86.79 Personal history of other diseases of the circulatory system | CPT/HCPCS: 85610 ==

== ENCOUNTER 2018-08-31 11:18 | Outpatient (CLI) | payer OTHER | END 2018-08-31 11:19 | disposition home or self-care (01) | LOC: LAB 11:18 | PROVIDERS: ATTEND Thoracic Surgery (Cardiothoracic Vascular Surgery) | DX: Z98.890 Other specified postprocedural states (principal); Z86.79 Personal history of other diseases of the circulatory system | CPT/HCPCS: 85610 ==

== ENCOUNTER 2018-10-19 09:21 | Outpatient (CLI) | payer OTHER | END 2018-10-19 09:22 | disposition home or self-care (01) | LOC: LAB 09:21 | PROVIDERS: ATTEND Thoracic Surgery (Cardiothoracic Vascular Surgery) | DX: Z98.890 Other specified postprocedural states (principal); Z86.79 Personal history of other diseases of the circulatory system | CPT/HCPCS: 85610 ==

== ENCOUNTER 2018-11-30 15:31 | Outpatient (CLI) | payer OTHER | END 2018-11-30 15:32 | disposition home or self-care (01) | LOC: LAB 15:31 | PROVIDERS: ATTEND Thoracic Surgery (Cardiothoracic Vascular Surgery) | DX: Z98.890 Other specified postprocedural states (principal); Z86.79 Personal history of other diseases of the circulatory system | CPT/HCPCS: 85610 ==

== ENCOUNTER 2021-02-24 06:37 | Outpatient (CLI) | payer BC | END 2021-02-24 06:38 | disposition critical access hospital (66) | LOC: EMS 06:37 | DX: R25.1 Tremor, unspecified (principal) | CPT/HCPCS: A0425; A0429 ==

== ENCOUNTER 2021-02-24 06:53 | Emergency (ER) | payer BC, OTHER ==
[2021-02-24] MEDS ORDERED: SODIUM CHLORIDE 0.9% 1,000 ML IV STA (07:12)
--- NOTE | 2021-02-24 07:36 | ED Physician Documentation ---
History of Present Illness - Stated complaint Stated Complaint: UNCONTROLLED SHAKING - Chief complaint Chief Complaint: Neuro - History obtained from History obtained from: Patient, Family, EMS - Additonal information Additional information: Patient is brought to the emergency department by for chief complaint of shaking uncontrollably this morning. The patient states that the symptoms began about a week and a half ago while he was admitted to the hospital at [facility]. The patient had a weeklong admission there for hyponatremia and anemia, during which she was treated for the hyponatremia and also underwent endoscopy and colonoscopy to address his anemia. According to patient and , the veterinary virologist who consulted on his case felt that his hyponatremia was most likely due to his hydrochlorothiazide, so this was discontinued. The patient was told that the shaking, which developed gradually throughout the last several days with his admission, would resolve on its own in time. The patient has been drinking alcohol on a daily basis for at least the last year and intake has often been quite heavy. However, the patient and state he has not had a drink since his admission. The patient denies nausea or sweats. He has not had issues with the shaking before. The patient states that the shaking starts up when he tries to move around, and that he has to stop every few steps if he is walking to try to let his muscles relax. He states that once he does this, he is able to keep walking. He states that his strength is good but sometimes the control of his movements is a little bit tougher because of the amount of shaking. Patient was in the shower this morning when he had an episode of the shaking and had to be lowered to the floor by his . It was at this point in time she called EMS to bring him here for reevaluation. Patient denies any excessive urination or lack thereof. He denies any diarrhea. No other complaints at this time. Review of Systems Ten Systems: 10 systems reviewed and negative Constitutional: reports: Reviewed and negative Eyes: reports: Reviewed and negative Ears: reports: Reviewed and negative Nose: reports: Reviewed and negative Throat: reports: Reviewed and negative Cardiac: reports: Reviewed and negative Respiratory: reports: Reviewed and negative GI: reports: Reviewed and negative. denies: Nausea, Diarrhea : reports: Reviewed and negative. denies: Dysuria Skin: reports: Reviewed and negative Musculoskeletal: reports: Reviewed and negative Neurologic: reports: Other (Tremors) Psychiatric: reports: Reviewed and negative Endocrine: reports: Reviewed and negative Immunocompromised: reports: Reviewed and negative PD PAST MEDICAL HISTORY - Past Medical History Cardiovascular: Hypertension Respiratory: None Endocrine/Autoimmune: None GI: Other HEENT: None Derm: None - Past Surgical History Past Surgical History: Yes General: Other - Present Medications Home Medications: Ambulatory Orders Medication Instructions Recorded Confirmed Omeprazole [PriLOSEC] 10 mg PO QDAC 08/30/17 10/24/17 lisinopriL [Lisinopril] 10 mg PO DAILY 08/30/17 10/24/17 Atorvastatin [Lipitor] 10/24/17 Metoprolol Succinate 10/24/17 Spironolactone 10/24/17 amLODIPine [Norvasc] 10 mg PO DAILY 10/24/17 10/24/17 - Allergies Allergies/Adverse Reactions: Allergies Allergy/AdvReac Type Severity Reaction Status Date / Time No Known Drug Allergies Allergy Verified 02/24/21 12:02 - Social History Does the pt smoke?: No Smoking Status: Never smoker Does the pt drink ETOH?: Yes Does the pt have substance abuse?: No - POLST Patient has POLST: No PD ED PE NORMAL - Vitals Vital signs reviewed: Yes - General General: Alert and oriented X 3, No acute distress, Well developed/nourished - HEENT HEENT: Atraumatic, PERRL, EOMI, Moist mucous membranes - Neck Neck: Supple, no meningeal sign - Cardiac Cardiac: RRR, No murmur, Strong equal pulses - Respiratory Respiratory: No respiratory distress, Clear bilaterally - Abdomen Abdomen: Soft, Non tender, Non distended - Back Back: No CVA TTP - Derm Derm: Normal color, Warm and dry, No rash - Extremities Extremities: No deformity, No edema, No calf tenderness / cord - Neuro Neuro: Alert and oriented X 3, senior ui developer 2-12 intact, No motor deficit, No sensory deficit, Normal speech, Other (Strength is 5+ and equal throughout all 4 extremities, the patient does have coarse tremors with any voluntary movement. The turns cause him to be mildly ataxic, though he is able to target and follow commands.) - Psych Psych: Normal mood, Normal affect Results - Vitals Vitals: Vital Signs - 24 hr 02/24/21 02/24/21 02/24/21 07:03 08:05 10:31 Temperature 37.2 C 36.4 C L Heart Rate 82 75 80 Respiratory 18 22 19 Rate Blood Pressure 92/68 108/79 117/86 H O2 Saturation 98 100 Oxygen O2 Source Room air - Labs Labs: Laboratory Tests 02/24/21 02/24/21 07:48 07:48 WBC 10.4 RBC 2.96 L Hgb 7.2 L Hct 23.6 L MCV 79.7 L MCH 24.3 L MCHC 30.5 L RDW 23.6 H Plt Count 269 MPV 7.8 Neut # (Auto) 8.6 H Lymph # (Auto) 0.9 L Clay # (Auto) 0.7 Eos # (Auto) 0.1 Baso # (Auto) 0.0 Absolute Nucleated RBC 0.00 Nucleated RBC % 0.0 Manual Slide Review Indicated Platelet Estimate NORMAL (130-450,000) Platelet Morphology NORMAL APPEARANCE RBC Morph Micro Appear 1+ TARGET CELLS Sodium 136 Potassium 4.0 Chloride 104 Carbon Dioxide 23 Anion Gap 9.0 BUN 13 Creatinine 1.0 Estimated GFR (MDRD) 76 L Glucose 100 Calcium 8.5 Total Bilirubin 1.1 H AST 28 ALT 31 Alkaline Phosphatase 82 Total Protein 6.2 L Albumin 3.4 Globulin 2.8 Albumin/Globulin Ratio 1.2 Lipase 39 PD MEDICAL DECISION MAKING - ED course Complexity details: reviewed old records, reviewed results, re-evaluated patient, considered differential, d/w patient, d/w family ED course: Patient was given IV normal saline, plus a banana bag, and labs were rechecked. I did order his records from [facility], Which did not arrive [facility]. Labs revealed that the patient's sodium had normalized to 136, and while the patient continued to be anemic at 7.2, he was not in transfusion range at this time. The patient was found to be feeling better after IV fluids. We discussed the possibility of some sort of either temporary assisted living or home health intervention. However, stated that the patient was doing well at home and that she did not think he needed to go stay anywhere else. The patient is in agreement and expressed his desire to go home. At this point in time, I felt that this was reasonable. We have discussed the need for follow-up and the usual indications for return. The patient should continue to take his iron, as directed. Departure - Departure Disposition: 01 Home, Self Care Clinical Impression: Coarse tremors, Alcohol abuse Anemia Qualifiers: Anemia type: unspecified type Qualified Code(s): D64.9 - Anemia, unspecified Condition: Stable Instructions: Essential Tremor ET, ED Anemia Type Not Specified, ED Alcohol Abuse Follow-Up: Sidney Dillon MD [Physician No Access] - Comments: Your sodium level today is actually normal. Your red blood cell levels are still low, though not quite at the point of needing a transfusion. You should continue your iron, as directed, and follow-up with your doctor for monitoring of your anemia. The tremors are most likely caused by a rebound effect after being on daily alcohol for an extended period of time until recently. Generally, as your nerves recover, the tremors will subside and ultimately go away. However, this can take some time for your body to restabilize. Please be sure to get plenty of healthful food and drink plenty of water to stay hydrated. If you continue to have tremors for more than the next couple of weeks, you may follow-up with neurology for reevaluation. Discharge Date/Time: 02/24/21 11:17
[2021-02-24 07:55] LABS: BASOPHILS % (AUTO) 0.4 %; EOSINOPHILS # (AUTO) 0.1 10^3/uL (0.0-0.7); EOSINOPHILS % (AUTO) 0.6 %; HCT - HEMATOCRIT 23.6 % (42.0-52.0); HGB - HEMOGLOBIN 7.2 g/dL (14.0-18.0); LYMPHOCYTES # (AUTO) 0.9 10^3/uL (1.5-3.5); LYMPHOCYTES % (AUTO) 8.4 %; MEAN CORPUSCULAR HEMOGLOBIN 24.3 pg (27.0-31.0); MEAN CORPUSCULAR HGB CONC 30.5 g/dL (32.0-36.0); MEAN CORPUSCULAR VOLUME 79.7 fL (80.0-94.0); MEAN PLATELET VOLUME 7.8 fL (7.4-11.4); MONOCYTES # (AUTO) 0.7 10^3/uL (0.0-1.0); MONOCYTES % (AUTO) 7.1 %; NEUTROPHILS # (AUTO) 8.6 10^3/uL (1.5-6.6); PLT - PLATELET COUNT 269 10^3/uL (130-450); RED BLOOD COUNT 2.96 10^6/uL (4.70-6.10); RED CELL DISTRIBUTION WIDTH 23.6 % (12.0-15.0); WHITE BLOOD COUNT 10.4 x10^3/uL (4.8-10.8)
[2021-02-24 07:57] LABS: SLIDE REVIEW? Indicated
[2021-02-24 08:06] LABS: ALBUMIN 3.4 g/dL (3.2-5.5); ALBUMIN/GLOBULIN RATIO 1.2 (1.0-2.2); BILIRUBIN,TOTAL 1.1 mg/dL (0.2-1.0); CALCIUM 8.5 mg/dL (8.5-10.3); TOTAL PROTEIN 6.2 g/dL (6.7-8.2)
[2021-02-24] MEDS ORDERED: FOLIC ACID INJ 1 MG, THIAMINE INJ 100 MG, MAGNESIUM SULFATE 2 GM, MULTIVITAMIN 10 ML in... IV STA ×5 (08:07)
[2021-02-24 08:37] LABS: PLATELET ESTIMATE, MANUAL NORMAL (130-450,000) (NORMAL); PLATELET MORPHOLOGY NORMAL APPEARANCE (NORMAL)
[2021-02-24 10:32] VITALS: BP 117/86
== END 2021-02-24 11:17 | disposition home or self-care (01) ==
LOC: EDUNIT# → ED 06:53
DX: R25.1 Tremor, unspecified (principal); D64.9 Anemia, unspecified; F10.10 Alcohol abuse, uncomplicated
CPT/HCPCS: 36415; 80053; 83690; 85025; 93005; 96361; 96365; 96366; 99284; J3411

== ENCOUNTER 2021-02-24 11:53 | Emergency (ER) | payer BC ==
[2021-02-24 12:02] VITALS: BP 109/70
--- NOTE | 2021-02-24 12:56 | ED Physician Documentation ---
History of Present Illness - Stated complaint Stated Complaint: SHAKES - Chief complaint Chief Complaint: General - History obtained from History obtained from: Patient, Family - Additonal information Additional information: Patient is brought back to the emergency department immediately after discharge by , who states that actually, she would like to talk to social work about extra assistance at home. Patient seen here for coarse tremors in the setting of alcoholism with recent cessation of alcohol in the last couple of weeks. Please see my note from the patient's visit immediately prior to this 1 for further details. Patient denies any worsening of his symptoms in the last 5 minutes since discharge. No other complaints at this time. Review of Systems Ten Systems: 10 systems reviewed and negative Constitutional: reports: Reviewed and negative Eyes: reports: Reviewed and negative Ears: reports: Reviewed and negative Nose: reports: Reviewed and negative Throat: reports: Reviewed and negative Cardiac: reports: Reviewed and negative Respiratory: reports: Reviewed and negative GI: reports: Reviewed and negative : reports: Reviewed and negative Skin: reports: Reviewed and negative Musculoskeletal: reports: Reviewed and negative Neurologic: reports: Generalized weakness, Other (Tremors) Psychiatric: reports: Reviewed and negative Endocrine: reports: Reviewed and negative Immunocompromised: reports: Reviewed and negative PD PAST MEDICAL HISTORY - Past Medical History Cardiovascular: Hypertension Respiratory: None Endocrine/Autoimmune: None GI: Other HEENT: None Derm: None - Past Surgical History Past Surgical History: Yes General: Other - Present Medications Home Medications: Ambulatory Orders Medication Instructions Recorded Confirmed Omeprazole [PriLOSEC] 10 mg PO QDAC 08/30/17 10/24/17 lisinopriL [Lisinopril] 10 mg PO DAILY 08/30/17 10/24/17 Atorvastatin [Lipitor] 10/24/17 Metoprolol Succinate 10/24/17 Spironolactone 10/24/17 amLODIPine [Norvasc] 10 mg PO DAILY 10/24/17 10/24/17 - Allergies Allergies/Adverse Reactions: Allergies Allergy/AdvReac Type Severity Reaction Status Date / Time No Known Drug Allergies Allergy Verified 02/24/21 12:02 - Social History Does the pt smoke?: No Smoking Status: Never smoker Does the pt drink ETOH?: Yes Does the pt have substance abuse?: No - POLST Patient has POLST: No PD ED PE NORMAL - Vitals Vital signs reviewed: Yes - General General: Alert and oriented X 3, No acute distress - HEENT HEENT: Atraumatic, PERRL, EOMI, Moist mucous membranes - Neck Neck: Supple, no meningeal sign - Cardiac Cardiac: RRR, No murmur - Respiratory Respiratory: No respiratory distress, Clear bilaterally - Abdomen Abdomen: Soft, Non tender, Non distended - Derm Derm: Warm and dry - Extremities Extremities: No deformity - Neuro Neuro: Alert and oriented X 3 - Psych Psych: Normal mood, Normal affect Results - Vitals Vitals: Oxygen O2 Source Room air PD MEDICAL DECISION MAKING - ED course Complexity details: considered differential, d/w patient, d/w family ED course: certified social workers in health care was consulted to go and talk with the patient and his . A number of resource options were given, but ultimately, it was determined that the patient and would still like to go home. It turns out their adult children also live with them, so the patient has plenty of assistance. Departure - Departure Disposition: 01 Home, Self Care Clinical Impression: Coarse tremors Anemia Qualifiers: Anemia type: unspecified type Qualified Code(s): D64.9 - Anemia, unspecified Comments: Please follow-up with your primary doctor as discussed with the social media project manager to get set up for home health. Discharge Date/Time: 02/24/21 13:02
== END 2021-02-24 13:02 | disposition home or self-care (01) ==
LOC: ED 11:53
DX: R25.1 Tremor, unspecified (principal); D64.9 Anemia, unspecified; F10.20 Alcohol dependence, uncomplicated

== ENCOUNTER 2021-03-02 08:00 | Outpatient (CLI) | payer BC ==
[2021-03-02 13:18] LABS: BASOPHILS # (AUTO) 0.1 10^3/uL (0.0-0.1); BASOPHILS % (AUTO) 0.8 %; EOSINOPHILS # (AUTO) 0.1 10^3/uL (0.0-0.7); EOSINOPHILS % (AUTO) 1.5 %; HCT - HEMATOCRIT 26.8 % (42.0-52.0); HGB - HEMOGLOBIN 8.2 g/dL (14.0-18.0); LYMPHOCYTES # (AUTO) 1.4 10^3/uL (1.5-3.5); LYMPHOCYTES % (AUTO) 17.4 %; MEAN CORPUSCULAR HEMOGLOBIN 24.8 pg (27.0-31.0); MEAN CORPUSCULAR HGB CONC 30.6 g/dL (32.0-36.0); MEAN CORPUSCULAR VOLUME 81.2 fL (80.0-94.0); MEAN PLATELET VOLUME 8.9 fL (7.4-11.4); MONOCYTES # (AUTO) 0.8 10^3/uL (0.0-1.0); MONOCYTES % (AUTO) 10.3 %; NEUTROPHILS # (AUTO) 5.6 10^3/uL (1.5-6.6); NEUTROPHILS % (AUTO) 69.7 %; PLT - PLATELET COUNT 445 10^3/uL (130-450); RED CELL DISTRIBUTION WIDTH 22.9 % (12.0-15.0)
[2021-03-02 13:48] LABS: ALBUMIN 3.7 g/dL (3.2-5.5); ALBUMIN/GLOBULIN RATIO 1.4 (1.0-2.2); BILIRUBIN,TOTAL 0.9 mg/dL (0.2-1.0); CALCIUM 9.1 mg/dL (8.5-10.3); CREATININE 0.9 mg/dL (0.6-1.2); POTASSIUM 3.4 mmol/L (3.5-5.0); TOTAL PROTEIN 6.3 g/dL (6.7-8.2)
== END 2021-03-02 23:59 | disposition home or self-care (01) ==
LOC: LAB.WCP 08:00
PROVIDERS: ATTEND Family Medicine
DX: E87.1 Hypo-osmolality and hyponatremia (principal); Z72.89 Other problems related to lifestyle
CPT/HCPCS: 36415; 80053; 83540; 84466; 85025

== ENCOUNTER 2021-04-20 14:25 | Outpatient (CLI) | payer BC ==
[2021-04-20 18:32] LABS: BASOPHILS # (AUTO) 0.1 10^3/uL (0.0-0.1); BASOPHILS % (AUTO) 0.7 %; EOSINOPHILS # (AUTO) 0.2 10^3/uL (0.0-0.7); EOSINOPHILS % (AUTO) 2.3 %; HCT - HEMATOCRIT 35.5 % (42.0-52.0); HGB - HEMOGLOBIN 10.5 g/dL (14.0-18.0); LYMPHOCYTES # (AUTO) 2.3 10^3/uL (1.5-3.5); LYMPHOCYTES % (AUTO) 27.1 %; MEAN CORPUSCULAR HEMOGLOBIN 24.5 pg (27.0-31.0); MEAN CORPUSCULAR HGB CONC 29.6 g/dL (32.0-36.0); MEAN CORPUSCULAR VOLUME 82.9 fL (80.0-94.0); MEAN PLATELET VOLUME 9.1 fL (7.4-11.4); MONOCYTES # (AUTO) 0.8 10^3/uL (0.0-1.0); MONOCYTES % (AUTO) 9.7 %; NEUTROPHILS # (AUTO) 5.2 10^3/uL (1.5-6.6); PLT - PLATELET COUNT 316 10^3/uL (130-450); RED BLOOD COUNT 4.28 10^6/uL (4.70-6.10); RED CELL DISTRIBUTION WIDTH 17.4 % (12.0-15.0); WHITE BLOOD COUNT 8.6 x10^3/uL (4.8-10.8)
[2021-04-20 18:53] LABS: ALBUMIN 4.2 g/dL (3.2-5.5); ALBUMIN/GLOBULIN RATIO 1.4 (1.0-2.2); BILIRUBIN,TOTAL 1.3 mg/dL (0.2-1.0); CALCIUM 9.3 mg/dL (8.5-10.3); CREATININE 0.8 mg/dL (0.6-1.2); POTASSIUM 4.7 mmol/L (3.5-5.0); TOTAL PROTEIN 7.3 g/dL (6.7-8.2)
== END 2021-04-20 14:26 | disposition home or self-care (01) ==
LOC: LAB.N 14:25
PROVIDERS: ATTEND Family Medicine
DX: D50.9 Iron deficiency anemia, unspecified (principal); K22.0 Achalasia of cardia
CPT/HCPCS: 36415; 80053; 82728; 83540; 84466; 85025

== ENCOUNTER 2022-08-10 09:58 | Emergency (ER) | payer BC, OTHER ==
[2022-08-10 10:43] LABS: BASOPHILS # (AUTO) 0.1 10^3/uL (0.0-0.1); BASOPHILS % (AUTO) 0.4 %; EOSINOPHILS # (AUTO) 0.1 10^3/uL (0.0-0.7); EOSINOPHILS % (AUTO) 0.9 %; LYMPHOCYTES # (AUTO) 1.9 10^3/uL (1.5-3.5); MEAN CORPUSCULAR HEMOGLOBIN 15.8 pg (27.0-31.0); MEAN CORPUSCULAR VOLUME 60.8 fL (80.0-94.0); MEAN PLATELET VOLUME 8.4 fL (7.4-11.4); MONOCYTES # (AUTO) 0.9 10^3/uL (0.0-1.0); MONOCYTES % (AUTO) 6.2 %; NEUTROPHILS # (AUTO) 10.8 10^3/uL (1.5-6.6); NEUTROPHILS % (AUTO) 78.1 %; NRBC ABSOLUTE COUNT (AUTO) 0.04 x10^3/uL; NUCLEATED RED BLOOD CELLS AUTO 0.3 /100WBC; PLT - PLATELET COUNT 314 10^3/uL (130-450); RED BLOOD COUNT 2.78 10^6/uL (4.70-6.10); RED CELL DISTRIBUTION WIDTH 21.7 % (12.0-15.0); WHITE BLOOD COUNT 13.8 x10^3/uL (4.8-10.8)
[2022-08-10 10:46] LABS: HGB - HEMOGLOBIN 4.4 g/dL (14.0-18.0)
[2022-08-10 10:47] LABS: HCT - HEMATOCRIT 16.9 % (42.0-52.0); SLIDE REVIEW? Indicated
[2022-08-10 10:57] LABS: ALBUMIN/GLOBULIN RATIO 1.4 (1.0-2.2); BILIRUBIN,TOTAL 1.8 mg/dL (0.2-1.0); CALCIUM 8.8 mg/dL (8.5-10.3); CREATININE 1.1 mg/dL (0.6-1.2); PLATELET ESTIMATE, MANUAL NORMAL (130-450,000) (NORMAL); PLATELET MORPHOLOGY NORMAL APPEARANCE (NORMAL); POTASSIUM 3.9 mmol/L (3.5-5.0); TOTAL PROTEIN 6.9 g/dL (6.7-8.2)
[2022-08-10 10:58] LABS: SLIDE SENT FOR PATH REVIEW? Indicated
--- NOTE | 2022-08-10 11:18 | XRAY Report ---
PROCEDURE: Chest 1 View X-Ray INDICATIONS: Chest pain TECHNIQUE: One view of the chest was acquired. COMPARISON: CT chest 04/19/2014. FINDINGS: Surgical changes and devices: Left atrial appendage occluder device. Aortic valve replacement. Post median sternotomy. Lungs and pleura: No pleural effusions or pneumothorax. Lungs are clear. Mediastinum: Mediastinal contours appear normal. Heart size is within normal limits. Bones and chest wall: No suspicious bony lesions. Overlying soft tissues appear unremarkable. IMPRESSION: No acute cardiopulmonary abnormality. Reviewed by: Moses Taylor MD on 08/10/2022 11:17 AM [facility] Approved by: Moses Taylor MD on 08/10/2022 11:17 AM [facility] Station ID: [id number]
--- NOTE | 2022-08-10 12:02 | ED Physician Documentation ---
PD HPI CHEST PAIN - Stated complaint Stated Complaint: FATIGUE/HIGH HR - Chief complaint Chief Complaint: Cardiac - History obtained from History obtained from: Patient - Additional information Additional information: 62-year-old gentleman with history of mitral valve repair about 5 years ago presents with progressive weakness with mild shortness of breath going on for the last few weeks. Over the last few days he can hear his heart beating in his ears. He denies dark or tarry stools. He does have a history of GI bleeding necessitating transfusion during an admission mostly for hyponatremia and about a year and a half ago. At that time per the he had upper and lower endoscopies that were reportedly negative. He denies alcohol use. Does use aspirin for aches and pains about twice to 3 times a week. Review of Systems Constitutional: reports: Fatigue. denies: Fever, Chills Cardiac: denies: Chest pain / pressure PD PAST MEDICAL HISTORY - Past Medical History Past Medical History: Yes Cardiovascular: Hypertension Respiratory: None Endocrine/Autoimmune: None GI: Other HEENT: None Derm: None - Past Surgical History Past Surgical History: Yes General: Other - Present Medications Home Medications: Ambulatory Orders Medication Instructions Recorded Confirmed Omeprazole [PriLOSEC] 10 mg PO QDAC 08/30/17 10/24/17 lisinopriL [Lisinopril] 10 mg PO DAILY 08/30/17 10/24/17 Atorvastatin [Lipitor] 10/24/17 Metoprolol Succinate 10/24/17 Spironolactone 10/24/17 amLODIPine [Norvasc] 10 mg PO DAILY 10/24/17 10/24/17 - Allergies Allergies/Adverse Reactions: Allergies Allergy/AdvReac Type Severity Reaction Status Date / Time No Known Drug Allergies Allergy Verified 08/10/22 10:12 - Social History Does the pt smoke?: No Smoking Status: Never smoker Does the pt drink ETOH?: Yes Does the pt have substance abuse?: No - POLST Patient has POLST: No PD ED PE NORMAL - Vitals Vital signs reviewed: Yes - General General: Alert and oriented X 3, No acute distress - HEENT HEENT: PERRL, EOMI - Neck Neck: Supple, no meningeal sign, No bony TTP - Cardiac Cardiac: Other (No murmur, occasional extrasystoles) - Respiratory Respiratory: No respiratory distress, Clear bilaterally - Abdomen Abdomen: Non tender - Back Back: No CVA TTP, No spinal TTP - Derm Derm: Normal color, Warm and dry - Extremities Extremities: No edema, No calf tenderness / cord - Neuro Neuro: Alert and oriented X 3, Normal speech Results - Vitals Vitals: Vital Signs - 24 hr 08/10/22 08/10/22 08/10/22 10:02 11:50 12:44 Temperature 36 C L 37.1 C Heart Rate 91 75 Heart Rate [ 68 Apical] Respiratory 14 16 18 Rate Blood Pressure 148/53 H 134/71 H Blood Pressure 107/61 [Right Brachial artery] O2 Saturation 100 100 100 08/10/22 08/10/22 08/10/22 13:01 15:17 15:29 Temperature 37.2 C 36.9 C 37.3 C Heart Rate Heart Rate [ 85 66 63 Apical] Respiratory 20 19 16 Rate Blood Pressure Blood Pressure 104/47 L 110/68 112/66 [Right Brachial artery] O2 Saturation 98 100 100 08/10/22 08/10/22 08/10/22 15:53 16:09 17:00 Temperature 37.3 C 36.9 C Heart Rate 64 Heart Rate [ 63 65 64 Apical] Respiratory 16 20 18 Rate Blood Pressure 105/65 Blood Pressure 112/66 109/72 105/65 [Right Brachial artery] O2 Saturation 100 100 98 08/10/22 08/10/22 08/10/22 17:36 17:51 18:07 Temperature 36.8 C 37.2 C 36.5 C Heart Rate Heart Rate [ 67 67 74 Apical] Respiratory 18 18 17 Rate Blood Pressure Blood Pressure 104/66 104/66 104/62 [Right Brachial artery] O2 Saturation 100 100 98 08/10/22 08/10/22 08/10/22 18:30 19:00 19:42 Temperature 36.8 C 37.4 C Heart Rate 66 Heart Rate [ 68 66 Apical] Respiratory 16 19 19 Rate Blood Pressure 104/68 Blood Pressure 98/63 128/75 [Right Brachial artery] O2 Saturation 99 100 100 08/10/22 19:43 Temperature 37.4 C Heart Rate Heart Rate [ 66 Apical] Respiratory 19 Rate Blood Pressure Blood Pressure 128/75 [Right Brachial artery] O2 Saturation 100 Oxygen O2 Source Room air - EKG (time done) 1010 Rate: Rate (enter#) (78) Rhythm: NSR [place]: LAD Intervals: Normal AK QRS: Low voltage Ischemia: Normal ST segments - Labs Labs: Microbiology 08/10/22 12:55 Occult Blood - Final Stool Laboratory Tests 08/10/22 08/10/22 08/10/22 10:32 10:32 10:32 WBC 13.8 H RBC 2.78 L Hgb 4.4 L* Hct 16.9 L* MCV 60.8 L MCH 15.8 L MCHC 26.0 L RDW 21.7 H Plt Count 314 MPV 8.4 Neut # (Auto) 10.8 H Lymph # (Auto) 1.9 [place] # (Auto) 0.9 Eos # (Auto) 0.1 Baso # (Auto) 0.1 Absolute Nucleated RBC 0.04 Nucleated RBC % 0.3 Manual Slide Review Indicated Platelet Estimate NORMAL (130-450,000) Platelet Morphology NORMAL APPEARANCE RBC Morph Micro Appear 4+ HYPOCHROMASIA Sodium 132 L Potassium 3.9 Chloride 101 Carbon Dioxide 22 Anion Gap 9.0 BUN 21 H Creatinine 1.1 Estimated GFR (MDRD) 68 L Glucose 148 H Calcium 8.8 Iron TIBC % Saturation Transferrin Total Bilirubin 1.8 H AST 17 ALT 14 Alkaline Phosphatase 56 Total Protein 6.9 Albumin 4.0 Globulin 2.9 Albumin/Globulin Ratio 1.4 Lipase 49 Slides for Path Review Indicated Blood Type Blood Type Recheck O POSITIVE Antibody Screen Crossmatch IS Only 08/10/22 08/10/22 10:32 11:15 WBC RBC Hgb Hct MCV MCH MCHC RDW Plt Count MPV Neut # (Auto) Lymph # (Auto) [place] # (Auto) Eos # (Auto) Baso # (Auto) Absolute Nucleated RBC Nucleated RBC % Manual Slide Review Platelet Estimate Platelet Morphology RBC Morph Micro Appear Sodium Potassium Chloride Carbon Dioxide Anion Gap BUN Creatinine Estimated GFR (MDRD) Glucose Calcium Iron 14 L TIBC 589 H % Saturation 2 L Transferrin 421 H Total Bilirubin AST ALT Alkaline Phosphatase Total Protein Albumin Globulin Albumin/Globulin Ratio Lipase Slides for Path Review Blood Type O POSITIVE Blood Type Recheck Antibody Screen NEGATIVE Crossmatch IS Only See Detail - Rads (name of study) 1v chest Radiology: Final report received, EMP read indepedently (negatve save postop chgs) PD Medical Decision Making - ED course ED course: 62-year-old gentleman with history of mitral valve repair presents with weakness and is found to have severe anemia. He is iron deficient and guaiac negative here. He was administered 3 units of blood given the profoundly low H&H and he was feeling much better. Discussed with him that he would need to follow-up with hematology for definitive diagnosis and further work-up. He and his voiced understanding. Departure - Departure Disposition: Home, Self Care Clinical Impression: Anemia Qualifiers: Anemia type: unspecified type Qualified Code(s): D64.9 - Anemia, unspecified Condition: Good Record reviewed to determine appropriate education?: Yes Instructions: ED Anemia Type Not Specified Comments: You are seen today for weakness related to profound anemia. Your hemoglobin was 4.4. There was no blood in your stool. As such the cause of your anemia is not known. You should probably restart an iron supplement but you also need to follow-up with your doctor for an semiurgent referral to hematology. Discharge Date/Time: 08/10/22 19:54
[2022-08-10 14:28] LABS: % IRON SATURATION 2 % (20-50); IRON 14 ug/dL (45-182); TOTAL IRON BINDING CAPACITY 589 ug/dL (250-450); TRANSFERRIN 421 mg/dL (180-329)
[2022-08-10 19:43] VITALS: BP 128/75
[2022-08-13 12:08] LABS: PATHOLOGIST SLIDE COMMENTS SEE SEPARATE REPORT
== END 2022-08-10 19:54 | disposition home or self-care (01) ==
LOC: ED 09:58
DX: D50.9 Iron deficiency anemia, unspecified (principal)
CPT/HCPCS: 36415; 36430; 71045; 80053; 82272; 83540; 83690; 84466; 85025; 86850; 86900; 86901; 86920; 93005; 99283; 99285; P9016

== ENCOUNTER 2022-08-12 11:16 | Outpatient (CLI) | payer OTHER ==
[2022-08-12 11:25] LABS: BASOPHILS # (AUTO) 0.1 10^3/uL (0.0-0.1); BASOPHILS % (AUTO) 0.9 %; EOSINOPHILS # (AUTO) 0.3 10^3/uL (0.0-0.7); EOSINOPHILS % (AUTO) 2.6 %; HCT - HEMATOCRIT 24.1 % (42.0-52.0); LYMPHOCYTES # (AUTO) 2.8 10^3/uL (1.5-3.5); LYMPHOCYTES % (AUTO) 24.1 %; MEAN CORPUSCULAR HEMOGLOBIN 20.1 pg (27.0-31.0); MEAN CORPUSCULAR VOLUME 69.1 fL (80.0-94.0); MEAN PLATELET VOLUME 8.2 fL (7.4-11.4); MONOCYTES # (AUTO) 1.3 10^3/uL (0.0-1.0); NEUTROPHILS # (AUTO) 7.2 10^3/uL (1.5-6.6); NRBC ABSOLUTE COUNT (AUTO) 0.05 x10^3/uL; NUCLEATED RED BLOOD CELLS AUTO 0.4 /100WBC; PLT - PLATELET COUNT 301 10^3/uL (130-450); RED BLOOD COUNT 3.49 10^6/uL (4.70-6.10); RED CELL DISTRIBUTION WIDTH 29.8 % (12.0-15.0); WHITE BLOOD COUNT 11.8 x10^3/uL (4.8-10.8)
[2022-08-12 11:52] LABS: SLIDE REVIEW? Indicated
[2022-08-12 11:54] LABS: PLATELET ESTIMATE, MANUAL NORMAL (130-450,000) (NORMAL); PLATELET MORPHOLOGY NORMAL APPEARANCE (NORMAL)
[2022-08-12 11:55] LABS: WBC MORPHOLOGY (MULTIPLE) NORMAL APPEARANCE (NORMAL)
== END 2022-08-12 11:17 | disposition home or self-care (01) ==
LOC: LAB 11:16
PROVIDERS: ATTEND Physician Assistant
DX: D50.9 Iron deficiency anemia, unspecified (principal)
CPT/HCPCS: 36415; 85025

== ENCOUNTER 2022-08-16 10:36 | Outpatient (CLI) | payer OTHER ==
[2022-08-16 10:46] LABS: BASOPHILS # (AUTO) 0.1 10^3/uL (0.0-0.1); BASOPHILS % (AUTO) 0.7 %; EOSINOPHILS # (AUTO) 0.3 10^3/uL (0.0-0.7); EOSINOPHILS % (AUTO) 2.1 %; HGB - HEMOGLOBIN 7.3 g/dL (14.0-18.0); LYMPHOCYTES # (AUTO) 2.7 10^3/uL (1.5-3.5); MEAN CORPUSCULAR HEMOGLOBIN 20.3 pg (27.0-31.0); MEAN CORPUSCULAR HGB CONC 28.1 g/dL (32.0-36.0); MEAN CORPUSCULAR VOLUME 72.2 fL (80.0-94.0); MEAN PLATELET VOLUME 8.2 fL (7.4-11.4); MONOCYTES # (AUTO) 1.3 10^3/uL (0.0-1.0); MONOCYTES % (AUTO) 10.7 %; NEUTROPHILS # (AUTO) 7.8 10^3/uL (1.5-6.6); NEUTROPHILS % (AUTO) 64.1 %; PLT - PLATELET COUNT 295 10^3/uL (130-450); WHITE BLOOD COUNT 12.1 x10^3/uL (4.8-10.8)
[2022-08-16 11:07] LABS: SLIDE REVIEW? Indicated
== END 2022-08-16 10:37 | disposition home or self-care (01) ==
LOC: LAB 10:36
PROVIDERS: ATTEND Physician Assistant
DX: D50.9 Iron deficiency anemia, unspecified (principal)
CPT/HCPCS: 36415; 85025

== ENCOUNTER 2024-04-17 09:41 | Emergency (ER) | payer MEDICARE, OTHER ==
[2024-04-17 10:22] LABS: BASOPHILS # (AUTO) 0.1 10^3/uL (0.0-0.1); EOSINOPHILS % (AUTO) 0.5 %; LYMPHOCYTES # (AUTO) 0.7 10^3/uL (1.5-3.5); LYMPHOCYTES % (AUTO) 11.5 %; MEAN CORPUSCULAR HEMOGLOBIN 19.6 pg (27.0-31.0); MEAN CORPUSCULAR HGB CONC 27.1 g/dL (32.0-36.0); MEAN CORPUSCULAR VOLUME 72.2 fL (80.0-94.0); MEAN PLATELET VOLUME 8.9 fL (7.4-11.4); MONOCYTES # (AUTO) 0.6 10^3/uL (0.0-1.0); MONOCYTES % (AUTO) 10.4 %; NEUTROPHILS # (AUTO) 4.4 10^3/uL (1.5-6.6); NEUTROPHILS % (AUTO) 75.9 %; NRBC ABSOLUTE COUNT (AUTO) 0.09 x10^3/uL; NUCLEATED RED BLOOD CELLS AUTO 1.6 /100WBC; PLT - PLATELET COUNT 243 10^3/uL (130-450); RED CELL DISTRIBUTION WIDTH 27.8 % (12.0-15.0); WHITE BLOOD COUNT 5.8 x10^3/uL (4.8-10.8)
[2024-04-17 10:28] LABS: HCT - HEMATOCRIT 16.6 % (42.0-52.0); HGB - HEMOGLOBIN 4.5 g/dL (14.0-18.0); SLIDE REVIEW? Indicated
[2024-04-17 10:39] LABS: ALBUMIN 3.8 g/dL (3.2-5.5); ALBUMIN/GLOBULIN RATIO 2.2 (1.0-2.2); BILIRUBIN,TOTAL 1.3 mg/dL (0.2-1.0); CALCIUM 8.7 mg/dL (8.5-10.3); CREATININE 0.8 mg/dL (0.6-1.3); POTASSIUM 3.7 mmol/L (3.5-4.5); TOTAL PROTEIN 5.5 g/dL (6.4-8.9)
[2024-04-17 10:44] LABS: PLATELET ESTIMATE, MANUAL NORMAL (130-450,000) (NORMAL); PLATELET MORPHOLOGY NORMAL APPEARANCE (NORMAL)
--- NOTE | 2024-04-17 12:15 | ED Physician Documentation ---
History of Present Illness - Stated complaint Stated Complaint: TRANSFUSION - Chief complaint Chief Complaint: General - History obtained from History obtained from: Patient - Additonal information Additional information: The patient sent to the emergency department from the [facility] clinic for chief complaint of low hemoglobin. He has a history of iron deficiency anemia that at this point is idiopathic. He gets iron infusions about once a month at the [facility] and also required a transfusion of 2 units of packed red cells back in December when his hemoglobin inexplicably dropped to 6.6. He states he has been feeling increased fatigue over the last couple of weeks, as well as some lightheadedness. He denies chest pain or shortness of breath. He has not noticed any blood in his stools or black tarry stools. He denies any other complaints at this time. He is a former alcoholic and stopped drinking in 2020. PD PAST MEDICAL HISTORY - Past Medical History Cardiovascular: Hypertension Respiratory: None Endocrine/Autoimmune: None GI: Other HEENT: None Derm: None - Past Surgical History Past Surgical History: Yes General: Other - Present Medications Home Medications: Ambulatory Orders Medication Instructions Recorded Confirmed Omeprazole [PriLOSEC] 20 mg PO QDAC 08/30/17 01/16/24 lisinopriL [Lisinopril] 10 mg PO DAILY 08/30/17 01/16/24 Atorvastatin [Lipitor] 10/24/17 Metoprolol Succinate 50 mg PO DAILY 10/24/17 01/16/24 Spironolactone 10/24/17 amLODIPine [Norvasc] 10 mg PO DAILY 10/24/17 01/16/24 - Allergies Allergies/Adverse Reactions: Allergies Allergy/AdvReac Type Severity Reaction Status Date / Time No Known Drug Allergies Allergy Verified 04/17/24 09:55 - Social History Does the pt smoke?: No Smoking Status: Never smoker Does the pt drink ETOH?: Yes Does the pt have substance abuse?: No - POLST Patient has POLST: No PD ED PE NORMAL - Vitals Vital signs reviewed: Yes - General General: Alert and oriented X 3, No acute distress, Well developed/nourished, Other (The patient has surprisingly good skin coloration with royce cheeks.) - HEENT HEENT: Atraumatic, EOMI, Moist mucous membranes - Neck Neck: Supple, no meningeal sign - Cardiac Cardiac: RRR, No murmur - Respiratory Respiratory: No respiratory distress, Clear bilaterally - Abdomen Abdomen: Soft, Non tender, Non distended - Derm Derm: Normal color, Warm and dry, No rash, Other (No nailbed pallor.) - Extremities Extremities: No deformity - Neuro Neuro: Alert and oriented X 3 - Psych Psych: Normal mood, Normal affect Results - Vitals Vitals: Vital Signs - 24 hr 04/17/24 04/17/24 04/17/24 09:51 11:52 11:55 Temperature 36.3 C L 36.3 C L 36.3 C L Heart Rate 104 H 80 Heart Rate [ 99 Monitoring electrodes] Respiratory 20 16 18 Rate Blood Pressure 145/74 H 124/68 Blood Pressure 124/68 [Left Brachial artery] O2 Saturation 100 99 100 04/17/24 04/17/24 04/17/24 12:07 13:00 14:13 Temperature 37 C Heart Rate 85 83 Heart Rate [ 79 Monitoring electrodes] Respiratory 17 19 18 Rate Blood Pressure 123/67 123/61 Blood Pressure 123/67 [Left Brachial artery] O2 Saturation 100 99 99 04/17/24 04/17/24 14:26 14:42 Temperature 37.2 C 37.5 C Heart Rate Heart Rate [ 79 87 Monitoring electrodes] Respiratory 15 19 Rate Blood Pressure Blood Pressure 129/76 137/97 H [Left Brachial artery] O2 Saturation 97 96 Oxygen O2 Source Room air - Labs Labs: Laboratory Tests 04/17/24 04/17/24 04/17/24 10:09 10:09 10:09 WBC 5.8 RBC 2.30 L Hgb 4.5 L* Hct 16.6 L* MCV 72.2 L MCH 19.6 L MCHC 27.1 L RDW 27.8 H Plt Count 243 MPV 8.9 Neut # (Auto) 4.4 Lymph # (Auto) 0.7 L [place] # (Auto) 0.6 Eos # (Auto) 0.0 Baso # (Auto) 0.1 Absolute Nucleated RBC 0.09 Nucleated RBC % 1.6 Manual Slide Review Indicated Platelet Estimate NORMAL (130-450,000) Platelet Morphology NORMAL APPEARANCE RBC Morph Micro Appear 4+ HYPOCHROMASIA Sodium 130 L Potassium 3.7 Chloride 100 L Carbon Dioxide 24 Anion Gap 6.0 BUN 11 Creatinine 0.8 Estimated GFR (MDRD) 97 Glucose 138 H Calcium 8.7 Total Bilirubin 1.3 H AST 16 ALT 14 Alkaline Phosphatase 69 Total Protein 5.5 L Albumin 3.8 Globulin 1.7 L Albumin/Globulin Ratio 2.2 Lipase 22 Blood Type O POSITIVE Antibody Screen NEGATIVE Crossmatch IS Only See Detail PD Medical Decision Making - ED course Complexity details: reviewed old records, reviewed results, re-evaluated patient, considered differential, d/w patient ED course: The patient's hemoglobin here was 4.5. His white blood cell count and platelet counts were normal. No significant findings on his metabolic panel. He was started on the first of 3 units of packed red cells. At the time of this dictation, he has finished his first unit and will get the next 2 shortly. The plan will be to infuse these over the next 4 to 5 hours and the patient will probably be able to just be discharged. Patient signed out to oncoming emergency physician at change of shift, pending remainder of transfusion. He is hemodynamically stable and without complaints at this time. Departure - Departure Forms: PCP List
--- NOTE | 2024-04-17 18:26 | ED Physician Documentation ---
ED Addendum - Addendum Addendum: 04/17/24 18:[address] Hernandez at 3 PM shift change. Briefly he has a history of iron deficiency anemia and is transfusion dependent and was sent over from the [facility] today with a hemoglobin in the fours. He appears remarkably well despite this and is tolerating it well. Plan at signout was for 3 units of transfusion and then a recheck H&H. At this point, the last unit is about shelter and so we will order the H&H soon. 04/17/24 19:18 His repeat H&H was 7.1. 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 Disposition: Discharged home Condition: Stable Diagnosis: 1. Profound anemia 04/17/24 19:35 Prior to discharge developed 2 little red spots on his face. They were not itchy, they were not hives. The lab wanted to order a transfusion reaction panel but I do not think this is necessary. The pathologist called me and I did not think any further workup was necessary.
[2024-04-17 18:51] LABS: HGB - HEMOGLOBIN 7.1 g/dL (14.0-18.0)
[2024-04-17 20:09] VITALS: BP 132/80; O2SAT 98
== END 2024-04-17 20:03 | disposition home or self-care (01) ==
LOC: ED 09:41
DX: D50.9 Iron deficiency anemia, unspecified (principal)
CPT/HCPCS: 36415; 36430; 80053; 83690; 85014; 85018; 85025; 86850; 86900; 86901; 86920; 99284